=== PATIENT | male | born 1985 | race Caucasian/White ===

== ENCOUNTER 2018-08-14 00:14 | Emergency (ER) | payer SELFPAY ==
[~2018-08-14] VITALS: Ht 182.9 cm; Wt 79.0 kg
[2018-08-14 00:25] VITALS: BP 126/80
== END 2018-08-14 01:05 | disposition left against medical advice (07) | DRG 556 ==
LOC: ED 00:14
DX: M79.602 Pain in left arm (principal); Z91.19 Patient's noncompliance with other medical treatment and regimen

== ENCOUNTER 2018-10-21 16:37 | Emergency (ER) | payer OTHER ==
[~2018-10-21] VITALS: Ht 182.9 cm; Wt 80.0 kg
[2018-10-21] MEDS ORDERED: CEPHALEXIN500 MG PO (17:02)
[2018-10-21 18:47] VITALS: BP 131/95
== END 2018-10-21 18:52 | disposition home or self-care (01) ==
LOC: ED 16:37
DX: S61.324A Laceration with foreign body of right ring finger with damage to nail, initial encounter (principal); S61.210A Laceration without foreign body of right index finger without damage to nail, initial encounter; S61.021A Laceration with foreign body of right thumb without damage to nail, initial encounter; F17.210 Nicotine dependence, cigarettes, uncomplicated; W23.0XXA Caught, crushed, jammed, or pinched between moving objects, initial encounter; Y93.89 Activity, other specified; Y92.89 Other specified places as the place of occurrence of the external cause; Y99.0 Civilian activity done for income or pay

== ENCOUNTER 2020-05-26 12:59 | Emergency (ER) | payer SELFPAY ==
[~2020-05-26] VITALS: Ht 182.9 cm; Wt 72.7 kg
[~2020-05-26 12:59] MED LIST: CEPHALEXIN500 MG PO
[2020-05-26] MEDS ORDERED: CLINDAMYCIN300 M1 PO (13:34)
[2020-05-26] MEDS ORDERED: HYDROCO/APAP1 TA9 PO (13:34)
[2020-05-26 13:48] VITALS: BP 111/61
== END 2020-05-26 13:48 | disposition home or self-care (01) | DRG 159 ==
LOC: ED 12:59
DX: K04.7 Periapical abscess without sinus (principal); K02.9 Dental caries, unspecified; F17.290 Nicotine dependence, other tobacco product, uncomplicated